=== PATIENT | male | born 1980 | race African-American/Black ===

== ENCOUNTER 2019-01-04 11:21 | Emergency (ER) | payer OTHER ==
[2019-01-04] MEDS ORDERED: NORMAL SALINE 1000 ML 1,000 ML IV ONE ×2 (12:00→13:51)
[2019-01-04] MEDS ORDERED: ACETAMINOPHEN 325 MG TABLET PO ONE (12:00)
--- NOTE | 2019-01-04 12:02 | ER Document Report ---
ED Medical Screen (RME) - General Chief Complaint: Headache Stated Complaint: POSSIBLE DEHYDRATION Time Seen by Provider: 01/04/19 11:54 Notes: Patient is a 38-year-old male presents to emergency department with a chief complaint of headache. 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 Patient reports he was sweating a lot and at that time did develop muscle spasming and cramps all over. Patient reports he did not vomit once. Patient reports since then he has had some muscle soreness and persistent frontal headache. Patient states his urine is a bright yellow in color. Patient denies vomiting since then. Patient has not taken any medications for this today. - Related Data Allergies/Adverse Reactions: No Known Allergies Allergy (Verified 01/04/19 11:25) Physical Exam - Vital signs Vitals: Temp Pulse Resp BP Pulse Ox 98.6 F 58 L 16 152/83 H 97 01/04/19 11:32 01/04/19 11:32 01/04/19 11:32 01/04/19 11:32 01/04/19 11:32 - Respiratory Respiratory status: No respiratory distress Chest status: Nontender Breath sounds: Normal Chest palpation: Normal - Cardiovascular Rhythm: Regular Heart sounds: Normal auscultation, S1 appreciated, S2 appreciated - Abdominal Inspection: Normal Distension: No distension Bowel sounds: Normal Tenderness: Nontender Organomegaly: No organomegaly Course - Re-evaluation Re-evalutation: 01/04/19 12:01 I have greeted and performed a rapid initial assessment of this patient. A comprehensive ED assessment and evaluation of the patient, analysis of test results and completion of the medical decision making process will be conducted by additional ED providers. - Vital Signs Vital signs: Temp Pulse Resp BP Pulse Ox 98.6 F 58 L 16 152/83 H 97 01/04/19 11:32 01/04/19 11:32 01/04/19 11:32 01/04/19 11:32 01/04/19 11:32
[2019-01-04 13:28] LABS: ABSOLUTE BASOPHILS # (AUTO) 0.1 10^3/uL (0.0-0.2); ABSOLUTE EOSINOPHILS # (AUTO) 0.1 10^3/uL (0.0-0.6); ABSOLUTE LYMPHOCYTES (AUTO) 2.1 10^3/uL (0.5-4.7); ABSOLUTE MONOCYTES (AUTO) 0.9 10^3/uL (0.1-1.4); BASOPHILS % (AUTO) 1.2 % (0-2); EOSINOPHILS % (AUTO) 1.3 % (0-6); HEMOGLOBIN 15.2 g/dL (13.5-17.0); LYMPHOCYTES % (AUTO) 29.1 % (13-45); MEAN CORPUSCULAR HGB CONC 34.5 g/dL (32.0-36.0); MEAN CORPUSCULAR VOLUME 78 fl (80-97); MONOCYTES % (AUTO) 12.6 % (3-13); PLATELET COUNT 245 10^3/uL (150-450); RED BLOOD COUNT 5.63 10^6/uL (4.35-5.55); RED CELL DISTRIBUTION WIDTH 14.4 % (11.5-14.0); SEGMENTED NEUTROPHILS % (AUTO) 55.8 % (42-78); TOTAL CELLS COUNTED % (AUTO) 100 %; WHITE BLOOD COUNT 7.2 10^3/uL (4.0-10.5)
[2019-01-04 13:42] LABS: ALBUMIN 5.1 g/dL (3.5-5.0); ALKALINE PHOSPHATASE 89 U/L (38-126); ANION GAP 11 (5-19); ASPARTATE AMINO TRANSFERASE 101 U/L (17-59); BILIRUBIN,DIRECT 0.2 mg/dL (0.0-0.4); BILIRUBIN,TOTAL 0.8 mg/dL (0.2-1.3); BLOOD UREA NITROGEN 29 mg/dL (7-20); CALCIUM 9.8 mg/dL (8.4-10.2); CARBON DIOXIDE 26 mmol/L (22-30); CHLORIDE 99 mmol/L (98-107); GLUCOSE 88 mg/dL (75-110); POTASSIUM 4.6 mmol/L (3.6-5.0); TOTAL PROTEIN 8.5 g/dL (6.3-8.2)
[2019-01-04 13:51] LABS: CREATINE KINASE 2674 U/L (55-170)
--- NOTE | 2019-01-04 14:36 | ER Document Report ---
HPI - HPI Patient complains to provider of: dehydration Time Seen by Provider: 01/04/19 11:54 Onset: Other - 2 days Onset/Duration: Persistent Quality of pain: Achy Pain Level: 3 Context: Patient states that he was working on a roof replacing shingles 2 days ago and felt like he got dehydrated. Patient states that he was having muscle cramps nausea and vomiting. Patient attempted to treat his dehydration with an ice bath and oral fluids. Patient states that the vomiting got better although the muscle cramps persisted yesterday. Patient states that he developed a headache yesterday and treated it with Motrin. Patient states headache initially went away but then returned again today. Patient presents with headache and concern about continued dehydration. Patient denies any additional vomiting or muscle cramps at this time. Associated Symptoms: Headache Exacerbated by: Denies Relieved by: Denies Similar symptoms previously: No Recently seen / treated by doctor: No - ROS ROS below otherwise negative: Yes Systems Reviewed and Negative: Yes All other systems reviewed and negative - NEURO Neurology: REPORTS: Headache - GASTROINTESTINAL Gastrointestinal: REPORTS: Patient vomiting - 2 days ago none since - DERM Skin Color: Normal Skin Problems: None Past Medical History - General Information source: Patient - Social History Smoking Status: Current Every Day Smoker Smoking Education Provided: Yes Frequency of alcohol use: Occasional Drug Abuse: None Occupation: anibal Lives with: Family Family History: Reviewed & Not Pertinent Patient has suicidal ideation: No Patient has homicidal ideation: No - Medical History Medical History: Negative Surgical Hx: Negative Vertical Provider Document - CONSTITUTIONAL Agree With Documented VS: Yes Exam Limitations: No Limitations General Appearance: WD/WN, No Apparent Distress - HEENT HEENT: Atraumatic, Normal ENT Exam, Normocephalic - NECK Neck: Normal Inspection, Supple. negative: Lymphadenopathy-Left, Lym phadenopathy-Right - RESPIRATORY Respiratory: Breath Sounds Normal, No Respiratory Distress - CARDIOVASCULAR Cardiovascular: Regular Rate, Regular Rhythm - GI/ABDOMEN Gastrointestinal: Abdomen Soft, Abdomen Non-Tender, No Organomegaly, Normal Bowel Sounds - BACK Back: Normal Inspection. negative: CVA Tenderness-Right, CVA Tenderness-Left - MUSCULOSKELETAL/EXTREMETIES Musculoskeletal/Extremeties: MAEW, FROM, Non-Tender - NEURO Level of Consciousness: Awake, Alert, Appropriate Motor/Sensory: No Motor Deficit - DERM Integumentary: Warm, Dry, No Rash Course - Re-evaluation Re-evalutation: 01/04/19 14:[address] Adan regarding patient presentation and diagnostic evaluation. Agrees with plan for IV hydration. No additional testing advised. Agrees with plan for avoidance of exertional physical activities until his symptoms have completely resolved and he is feeling better. 01/04/19 15:19 Urinalysis reviewed, no concern for infection. Patient able to tolerate oral fluids without emesis. Will encourage outpatient follow-up with the primary doctor to repeat his electrolytes. Patient encouraged to increase oral fluids and to avoid any exertional activities for the next several days. - Vital Signs Vital signs: Temp Pulse Resp BP Pulse Ox 98.6 F 58 L 16 152/83 H 97 01/04/19 11:32 01/04/19 11:32 01/04/19 11:32 01/04/19 11:32 01/04/19 11:32 - Laboratory Result Diagrams: 01/04/19 13:10 01/04/19 13:10 Laboratory results interpreted by me: 01/04/19 01/04/19 13:10 13:10 RBC 5.63 H MCV 78 L RDW 14.4 H Sodium 136.2 L BUN 29 H Creatinine 1.26 H AST 101 H Creatine Kinase 2674 H Total Protein 8.5 H Albumin 5.1 H 01/04/19 15:19 Labs- Entire Visit 01/04/19 01/04/19 01/04/19 13:10 13:10 14:10 WBC 7.2 RBC 5.63 H Hgb 15.2 Hct 44.0 MCV 78 L MCH 27.0 MCHC 34.5 RDW 14.4 H Plt Count 245 Lymph % (Auto) 29.1 [place] % (Auto) 12.6 Eos % (Auto) 1.3 Baso % (Auto) 1.2 Absolute Neuts (auto) 4.0 Absolute Lymphs (auto) 2.1 Absolute Monos (auto) 0.9 Absolute Eos (auto) 0.1 Absolute Basos (auto) 0.1 Seg Neutrophils % 55.8 Sodium 136.2 L Potassium 4.6 Chloride 99 Carbon Dioxide 26 Anion Gap 11 BUN 29 H Creatinine 1.26 H Est GFR ( Amer) > 60 Est GFR (MDRD) Non-Af > 60 Glucose 88 Calcium 9.8 Total Bilirubin 0.8 Direct Bilirubin 0.2 Neonat Total Bilirubin Not Reportable Neonat Direct Bilirubin Not Reportable Neonat Indirect Bili Not Reportable AST 101 H ALT 32 Alkaline Phosphatase 89 Creatine Kinase 2674 H Total Protein 8.5 H Albumin 5.1 H Urine Color YELLOW Urine Appearance CLEAR Urine pH 6.0 Ur Specific [place] 1.015 Urine Protein 30 H Urine Glucose (UA) NEGATIVE Urine Ketones NEGATIVE Urine Blood NEGATIVE Urine Nitrite NEGATIVE Urine Bilirubin NEGATIVE Urine Urobilinogen NEGATIVE Ur Leukocyte Esterase NEGATIVE Urine WBC (Auto) 2 Urine RBC (Auto) 1 Squamous Epi Cells Auto <1 Urine Mucus (Auto) RARE Urine Ascorbic Acid NEGATIVE Discharge - Discharge Clinical Impression: Dehydration Rhabdomyolysis Qualifiers: Rhabdomyolysis type: non-traumatic Qualified Code(s): M62.82 - Rhabdomyolysis Headache Qualifiers: Headache type: unspecified Headache chronicity pattern: unspecified pattern Intractability: not intractable Qualified Code(s): R51 - Headache Condition: Stable Disposition: HOME, SELF-CARE Instructions: Headache ([facility]), Intravenous (IV) Fluids ([facility]) Additional Instructions: Return immediately for any new or worsening symptoms Followup with your primary care provider, call Sunday for follow-up appointment. Increase oral fluids and stay well-hydrated No physical exertional activities until you are asymptomatic, no headache, no nausea, no muscle cramping, and no problems with urination Forms: Smoking Cessation Education, Return to Work Referrals: [facility] [Provider Group] - Follow up as needed [facility] [Provider Group] - Follow up as needed
[2019-01-04 14:38] LABS: APPEARANCE,URINE CLEAR; BILIRUBIN,URINE NEGATIVE (NEGATIVE); COLOR,URINE YELLOW; GLUCOSE, URINE NEGATIVE (NEGATIVE); KETONES,URINE NEGATIVE (NEGATIVE); LEUKOCYTE ESTERASE,URINE NEGATIVE (NEGATIVE); NITRITE,URINE NEGATIVE (NEGATIVE); PROTEIN,URINE 30 mg/dL (NEGATIVE); URINE SPECIFIC GRAVITY 1.015; UROBILINOGEN,URINE NEGATIVE mg/dL (<2.0)
[2019-01-04 15:40] VITALS: BP 149/79
== END 2019-01-04 15:40 | disposition home or self-care (01) ==
LOC: ER 11:21
DX: E86.0 Dehydration (principal); M62.82 Rhabdomyolysis; R51 Headache; F17.200 Nicotine dependence, unspecified, uncomplicated
CPT/HCPCS: 99284; 96360; 96361; 36415; 82550; 85025; 80053; 81001; J7030